=== PATIENT | male | born 1980 | race Caucasian/White ===

== ENCOUNTER → 2018-05-05 12:16 | Outpatient (CLI) | payer BC, SELFPAY ==
[2018-05-05 13:47] LABS: Pathologist Comment May follow
[2018-05-05 13:59] LABS: RBC /Synovial Fluid 0.002 10^6/uL (0); Synovial Fld Mononuclear WBC % 64.1 %; Synovial Fld Polynuclear WBC # 2.084 10^3/ul; Synovial Fld Polynuclear WBC % 35.9 %
[2018-05-05 14:05] LABS: Absolute Neutrophil Count 6.5 X10^3/uL (2.0-7.7); Basophil# 0.01 X10^3/uL; Basophil% 0.1 % (0-1); Eosinophil# 0.02 X10^3/uL; Eosinophils% 0.3 % (0-5); Hematocrit 43.6 % (40-54); Hemoglobin 15.1 g/dl (13.0-16.5); Lymphocyte % 13.9 % (19-41); Mean Corp Hgb Conc 34.6 g/gl (32-36); Mean Corpuscular Hgb 28.7 pg (27.0-32.0); Mean Corpuscular Volume 82.9 fL (80-94); Mean Platelet Vol. 11.2 fl (6.2-12.0); Monocyte% 2.5 % (0-10); Neutrophil % 82.3 % (47-70); Platelet Count 236 K/mm3 (150-450); RBC Distribution Width CV 12.1 % (11.6-14.6); RBC Distribution Width SD 36.8 fl (35.1-43.9); Red Blood Count 5.26 M/mm3 (4.6-6.2); White Blood Count 7.9 K/mm3 (4.4-11.0)
[2018-05-05 14:06] LABS: POSITIVE COUNT NO; POSITIVE DIFFERENTIAL NO; POSITIVE MORPHOLOGY NO
[2018-05-05 14:20] LABS: AST(SGOT) 14 U/L (15-37); Alanine Aminotransfer ALT/SGPT 52 U/L (16-61); Albumin, Serum 3.6 g/dL (3.2-5.0); Alkaline Phosphatase 78 U/L (45-117); Anion Gap 8 (5-15); BUN 15 mg/dL (7-18); BUN/Creat Ratio 18.3 RATIO (10-20); Calcium,Total 8.7 mg/dL (8.5-10.1); Chloride 106 mmol/L (98-107); Creatinine, Serum 0.82 mg/dL (0.70-1.30); EST Glomerular Filtration Rate 111 mL/min (>60); Est Glom Filt Rate - Afr Amer 134 mL/min (>60); Globulin 3.7 g/dL (2.2-4.2); Glucose 253 mg/dL (74-106); Potassium 3.9 mmol/L (3.5-5.1); Protein, Total 7.3 g/dL (6.4-8.2); Sodium Level 137 mmol/L (136-145)
[2018-05-05 14:23] LABS: AUTO B FLUID DILUENT BKGD CT WBC <0.1 RBC <0.01 (W<.1,R<.01); Appearance /Synovial Fluid Sl Cl (CLEAR); Color / Synovial Fluid Yellow (Pale Yellow); Source / Synovial Fluid RIGHT KNEE; Source- Body Fluid SYNOVIAL
[2018-05-05 14:55] LABS: Body Fluid QC Type(s) BF1Q,BF2Q; Lymph 65 %; Monocyte /Synovial Fluid 5 %; Neutrophil 30 % (0-25)
[2018-05-06 10:34] LABS: Pathologist Review Reviewed
== END ==
PROVIDERS: Family Provider Family Medicine; PCP Family Medicine; Referring Provider Internal Medicine Rheumatology; Visit Provider Internal Medicine Rheumatology
DX: M06.4 Inflammatory polyarthropathy (principal); K50.819 Crohn's disease of both small and large intestine with unspecified complications; E11.9 Type 2 diabetes mellitus without complications; K21.9 Gastro-esophageal reflux disease without esophagitis; F32.89 Other specified depressive episodes; Z79.899 Other long term (current) drug therapy
CPT/HCPCS: 36415; 80053; 85025; 87070; 87075; 87205; 89050; 89051; 89060

== ENCOUNTER → 2018-11-03 | Outpatient (CLI) | payer BC, SELFPAY ==
[2018-11-03 14:56] LABS: Pathologist Comment May follow
[2018-11-03 15:42] LABS: Synovial Fld Mononuclear WBC % 55.4 %; Synovial Fld Polynuclear WBC # 3.024 10^3/ul; Synovial Fld Polynuclear WBC % 44.6 %
[2018-11-03 16:06] LABS: AUTO B FLUID DILUENT BKGD CT WBC <0.1 RBC <0.01 (W<.1,R<.01)
[2018-11-03 16:07] LABS: RBC /Synovial Fluid 73 /mm3 (0); Viscosity / Synovial Fluid Sl. Viscous (HIGH)
[2018-11-03 16:23] LABS: Appearance /Synovial Fluid Cloudy (CLEAR); Color / Synovial Fluid Yellow (Pale Yellow); Source- Body Fluid SYNOVIAL
[2018-11-03 16:24] LABS: Source / Synovial Fluid RIGHT KNEE
[2018-11-03 16:50] LABS: Lymph 43 %; Monocyte /Synovial Fluid 23 %; Neutrophil 34 % (0-25)
[2018-11-04 15:19] LABS: Pathologist Review Reviewed
== END | disposition home or self-care (01) ==
LOC: LABSPEC 13:47
PROVIDERS: Family Provider Family Medicine; PCP Family Medicine; Referring Provider Internal Medicine Rheumatology; Visit Provider Internal Medicine Rheumatology
DX: M06.4 Inflammatory polyarthropathy (principal); K50.819 Crohn's disease of both small and large intestine with unspecified complications; E11.9 Type 2 diabetes mellitus without complications; K21.9 Gastro-esophageal reflux disease without esophagitis; F32.89 Other specified depressive episodes; Z79.899 Other long term (current) drug therapy
CPT/HCPCS: 87070; 87075; 87205; 89050; 89051; 89060

== ENCOUNTER → 2019-04-13 | Outpatient (CLI) | payer BC, SELFPAY ==
[2019-04-13 14:29] LABS: Pathologist Comment May follow
[2019-04-13 14:53] LABS: Synovial Fld Mononuclear WBC % 20.5 %; Synovial Fld Polynuclear WBC # 12.735 10^3/uL; Synovial Fld Polynuclear WBC % 79.5 %
[2019-04-13 15:27] LABS: AUTO B FLUID DILUENT BKGD CT WBC <0.1 RBC <0.01 (W<.1,R<.01); Appearance /Synovial Fluid Cloudy (CLEAR); Color / Synovial Fluid Straw (Pale Yellow); Source / Synovial Fluid RIGHT KNEE; Source- Body Fluid SYNOVIAL
[2019-04-13 15:29] LABS: Body Fluid QC Type(s) BF1,BF2; Lymph 19 %; Neutrophil 81 % (0-25)
[2019-04-13 15:45] LABS: RBC /Synovial Fluid 920 /mm3 (0)
[2019-04-15 14:49] LABS: Pathologist Review Reviewed
== END | disposition home or self-care (01) ==
LOC: LABSPEC 14:12
PROVIDERS: Family Provider Family Medicine; PCP Family Medicine; Referring Provider Internal Medicine Rheumatology; Visit Provider Internal Medicine Rheumatology
DX: M06.4 Inflammatory polyarthropathy (principal); M77.11 Lateral epicondylitis, right elbow; K50.819 Crohn's disease of both small and large intestine with unspecified complications; E11.9 Type 2 diabetes mellitus without complications; K21.9 Gastro-esophageal reflux disease without esophagitis; F32.89 Other specified depressive episodes; Z79.899 Other long term (current) drug therapy
CPT/HCPCS: 87070; 87075; 87205; 89050; 89051; 89060

== ENCOUNTER → 2022-01-17 | Outpatient (CLI) | payer MEDICARE, SELFPAY ==
[2022-01-17 12:15] LABS: Absolute Lymphocyte Count 1.34 X10^3/uL (0.83-4.51); Absolute Neutrophil Count 3.3 X10^3/uL (2.0-7.7); Basophil# 0.03 X10^3/uL; Basophil% 0.6 % (0-1); Eosinophil# 0.16 X10^3/uL; Hematocrit 46.7 % (40-54); Lymphocyte # 1.34 X10^3/ul (0.83-4.51); Lymphocyte % 25.1 % (19-41); Mean Corp Hgb Conc 34.3 g/dL (32-36); Mean Corpuscular Hgb 29.7 pg (27.0-32.0); Mean Corpuscular Volume 86.6 fL (80-94); Mean Platelet Vol. 11.9 fl (6.2-12.0); Monocyte% 9.4 % (0-10); NRBC Flagged by Analyzer 0 % (0-5); Neutrophil # 3.25 X10^3/uL (2.7-7.7); Neutrophil % 60.8 % (47-70); Platelet Count 175 K/mm3 (150-450); RBC Distribution Width CV 11.8 % (11.6-14.6); Red Blood Count 5.39 M/mm3 (4.6-6.2); White Blood Count 5.3 K/mm3 (4.4-11.0)
[2022-01-17 12:34] LABS: ALB/GLOB Ratio 1.1 RATIO (0.9-2.4); AST(SGOT) 23 U/L (15-37); Alanine Aminotransfer ALT/SGPT 54 U/L (16-61); Albumin, Serum 3.9 g/dL (3.2-5.0); Alkaline Phosphatase 86 U/L (45-117); Anion Gap 7 (5-15); BUN 11 mg/dL (7-18); BUN/Creat Ratio 14.2 RATIO (10-20); Calcium,Total 9.3 mg/dL (8.5-10.1); Chloride 108 mmol/L (98-107); Creatinine, Serum 0.78 mg/dL (0.70-1.30); EST Glomerular Filtration Rate 116 mL/min (>60); Est Glom Filt Rate - Afr Amer 141 mL/min (>60); Globulin 3.5 g/dL (2.2-4.2); Glucose 178 mg/dL (74-106); Protein, Total 7.4 g/dL (6.4-8.2); Sodium Level 140 mmol/L (136-145)
== END | disposition home or self-care (01) ==
PROVIDERS: PCP Family Medicine; Referring Provider Internal Medicine Rheumatology; Visit Provider Internal Medicine Rheumatology
DX: M06.4 Inflammatory polyarthropathy (principal); K50.819 Crohn's disease of both small and large intestine with unspecified complications; E11.9 Type 2 diabetes mellitus without complications; M18.12 Unilateral primary osteoarthritis of first carpometacarpal joint, left hand; K21.9 Gastro-esophageal reflux disease without esophagitis; F32.89 Other specified depressive episodes; K76.0 Fatty (change of) liver, not elsewhere classified; Z79.899 Other long term (current) drug therapy
CPT/HCPCS: 36415; 80053; 85025